=== PATIENT | female | born 1965 | race American Indian/Alaskan Native ===

== ENCOUNTER 2018-01-06 08:12 | Outpatient (CLI) | payer MEDICAID ==
[2018-01-06 08:52] LABS: Blood Urea Nitrogen 13 mg/dL (7-17)
--- NOTE | 2018-01-06 12:38 | Cat Scan Report ---
CT scan of abdomen and pelvis with IV contrast: History: Diarrhea. Findings: Normal lung bases. No pleural pericardial effusion. Normal liver spleen pancreas. Patient status post cholecystectomy. Normal adrenals kidney parenchyma and bladder. No free intraperitoneal fluid are air. No evidence of adenopathy. Normal There is a ventral hernia containing large bowel loops without evidence of incarceration or obstruction or strangulation. Normal small bowel. No evidence of appendicitis or diverticulitis. Impression: Large ventral hernia without evidence of obstruction, incarceration or strangulation. Stool in colon.
== END 2018-01-06 08:13 | disposition home or self-care (01) ==
LOC: CT 08:12
PROVIDERS: ATTEND Internal Medicine Gastroenterology
DX: K21.9 Gastro-esophageal reflux disease without esophagitis (principal); K43.9 Ventral hernia without obstruction or gangrene; K42.9 Umbilical hernia without obstruction or gangrene; R19.7 Diarrhea, unspecified; E11.9 Type 2 diabetes mellitus without complications; I10 Essential (primary) hypertension; Z90.49 Acquired absence of other specified parts of digestive tract
CPT/HCPCS: 36415; 74177; 82565; 84520; Q9967

== ENCOUNTER → 2018-04-19 | Outpatient (CLI) | payer MEDICAID ==
--- NOTE | 2018-04-19 11:09 | Fluoroscopy Report ---
FLUOROSCOPY BARIUM AIR-CONTRAST ENEMA History: Abdominal pain. Findings: The CT abdomen pelvis with contrast dated 01/06/18 was reviewed. Emblem Maker film of the abdomen demonstrates an unremarkable bowel gas pattern. A rectal tube was inserted for retrograde administration of barium contrast agent. The rectum, sigmoid colon, descending colon and distal transverse colon are normal. There is a relatively short segment of the mid transverse colon located within an umbilical hernia. The right hemicolon was incompletely opacified on this examination. Only the distal transverse colon as confidently visualized. There appears to be some level of obstruction at the level of the umbilical hernia. There is no obvious colonic mass, polyp or mucosal defect in the visualized colon. Please note the ascending colon not adequately examined. The examination was terminated at the patient's request due to discomfort. Impression: Umbilical hernia containing a short segment of the transverse colon with suggestion of mild obstruction at this level. See above.
== END | disposition home or self-care (01) ==
LOC: FLUORO 08:09
PROVIDERS: ATTEND Internal Medicine Gastroenterology
DX: K42.0 Umbilical hernia with obstruction, without gangrene (principal); E78.00 Pure hypercholesterolemia, unspecified; I10 Essential (primary) hypertension; K21.9 Gastro-esophageal reflux disease without esophagitis; E66.9 Obesity, unspecified; I25.10 Atherosclerotic heart disease of native coronary artery without angina pectoris; I82.409 Acute embolism and thrombosis of unspecified deep veins of unspecified lower extremity; F17.210 Nicotine dependence, cigarettes, uncomplicated; Z90.49 Acquired absence of other specified parts of digestive tract; Z88.7 Allergy status to serum and vaccine
CPT/HCPCS: 74280